=== PATIENT | female | born 1930 | race Caucasian/White ===

== ENCOUNTER 2017-07-09 02:28 | Inpatient (IN) | payer MEDICARE, OTHER ==
[2017-07-09 02:38] VITALS: RESP 16
[2017-07-09] MEDS ORDERED: SODIUM CHLORIDE 0.9% 1,000 ML IV STA (02:57)
[2017-07-09] MEDS ORDERED: SODIUM CHLORIDE 0.9% 500 ML IV STA (02:57)
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
[2017-07-09 03:21] LABS: Basophils % (A) 0 %; Eosinophils # (A) 0.1 k/uL (0-0.7); Eosinophils % (A) 2 %; HCT 39.2 % (34.0-46.0); HGB 13.1 gm/dL (11.4-16.0); Lymphocytes # (A) 1.2 k/uL (1.0-4.8); Lymphocytes % (A) 23 %; MCHC 33.4 g/dL (31.0-37.0); MCV 86.8 fL (80.0-100.0); Mean Platelet Volume 7.4; Monocytes # (A) 0.4 k/uL (0-1.0); Monocytes % (A) 8 %; Neutrophils # (A) 3.4 k/uL (1.3-7.7); Neutrophils % (A) 66 %; Platelet Count 267 k/uL (150-450); RBC 4.52 m/uL (3.80-5.40); RDW 13.8 % (11.5-15.5); WBC 5.2 k/uL (3.8-10.6)
[2017-07-09 03:34] LABS: Albumin 3.7 g/dL (3.5-5.0); Calcium 9.3 mg/dL (8.4-10.2); Potassium 4.2 mmol/L (3.5-5.1); Total Bilirubin 0.6 mg/dL (0.2-1.3); Total Protein 5.8 g/dL (6.3-8.2)
[2017-07-09 03:37] LABS: Creatine Kinase 43 U/L (30-135)
[2017-07-09 03:40] LABS: Glucose,Whole Blood 91 mg/dL (75-99)
[2017-07-09 03:50] LABS: Creatine Kinase MB 0.9 ng/mL (0.0-2.4); Troponin I <0.012 ng/mL (0.000-0.034)
--- NOTE | 2017-07-09 04:13 | XR ---
EXAM: XR Chest, 2 Views CLINICAL HISTORY: Cough TECHNIQUE: Frontal and lateral views of the chest. COMPARISON: No relevant prior studies available. FINDINGS: Chronic interstitial changes with mild hyperinflation the lungs. Cardiac silhouette is within normal limits. There is no evidence for effusions. There is no evidence for infiltrates. IMPRESSION: Unremarkable 2 views of the chest
--- NOTE | 2017-07-09 04:18 | CT ---
EXAM: CT Head Without Intravenous Contrast CLINICAL HISTORY: Pain TECHNIQUE: Axial computed tomography images of the head/brain without intravenous contrast. CTDI is 57.4 mGy and DLP is 961 mGy-cm. This CT exam was performed using one or more of the following dose reduction techniques: automated exposure control, adjustment of the mA and/or kV according to patient size, and/or use of iterative reconstruction technique. FINDINGS: No intracranial hemorrhage, abnormal intra- or extra-axial collections or parenchymal lesions are seen. There are involutional changes with prominence of the sulci, basal cisterns and ventricles. Scattered white matter hypoattenuations are present, likely from small vessel disease. The harris-white differentiation is preserved. No evidence of mass effect, midline shift, or edema. The osseous structures are unremarkable. Abnormal density noted in the right frontal sinus which could represent inflammatory change. Mucous retention cyst noted in the left maxillary sinus. IMPRESSION: 1. No acute intracranial process. 2. Involutional changes with small vessel disease.
[2017-07-09 04:30] LABS: Appearance,Urine Clear (Clear); Bacteria,Urine Many /hpf; Bilirubin,Urine Negative (Negative); Blood,Urine Negative (Negative); Color,Urine Yellow; Glucose,Urine (UA) Negative (Negative); Hyaline Casts,Urine 4 /lpf (0-2); Ketones,Urine Negative (Negative); Leukocyte Esterase,Urine Moderate (Negative); Mucus,Urine Rare /hpf; Nitrite,Urine Positive (Negative); Protein,Urine Negative (Negative); Specific Gravity,Urine 1.011 (1.001-1.035); Squamous Epithelial Cell,Urine <1 /hpf (0-4); Urobilinogen,Urine <2.0 mg/dL (<2.0); WBC,Urine 10 /hpf (0-5)
[2017-07-09] MEDS ORDERED: cefTRIAXone IN SWFI 1,000 MG/10 ML SYRINGE IVP STA (04:53)
[2017-07-09] MEDS ORDERED: ACETAMINOPHEN TAB 325 MG TAB PO PRN (05:15)
[2017-07-09] MEDS ORDERED: NALOXONE 0.4 MG/ML 1 ML VIAL IV PRN (05:15)
[2017-07-09 07:18] VITALS: BMI 18.3
[2017-07-09] MEDS: cefTRIAXone IN SWFI 1,000 MG/10 ML SYRINGE IVP SCH (07:40)
--- NOTE | 2017-07-09 14:36 | P.HPIM ---
History of Present Illness H&P Date: 07/09/17 Chief Complaint: Confusion and altered mental status This is a 87-year-old female patient of [facility]. She has no significant past medical history. She came into the emergency room due to altered mental status and possible psychosis. She was up on the fifth floor visiting with her who is admitted into the hospital and patient started acting irrationally with altered mental status and screaming out loud and being combative with the nurses. About 5 nurses had to help control the patient's and brought her down to the emergency room. Patient was found to have a urinary tract infection she was started on IV Rocephin and also given some IV fluids for dehydration a possible acute kidney injury. Daughter is concerned that patient may have some underlying dementia that was never officially diagnosed. Computed tomography scan of brain shows no acute intracranial process. Did show involutional changes with small vessel disease. Chest x- rays negative. EKG showing sinus rhythm with PACs. Patient is currently admitted to the third floor she is still very confused and psychiatry will be consulted. Review of Systems Unable to obtain due to patient's confusion Past Medical History Past Medical History: No Reported History History of Any Multi-Drug Resistant Organisms: None Reported Past Surgical History: No Surgical Hx Reported Past Psychological History: No Psychological Hx Reported Smoking Status: Former smoker Past Alcohol Use History: None Reported Past Drug Use History: None Reported - Past Family History Mother Family Medical History: No Reported History Medications and Allergies Home Medications Medication Instructions Recorded Confirmed Type No Known Home Medications [No 07/09/17 07/09/17 History Known Home Medications] Allergies Allergy/AdvReac Type Severity Reaction Status Date / Time No Known Allergies Allergy Verified 07/09/17 07:37 Physical Exam Vitals: Vital Signs Temp Pulse Pulse Resp BP BP Pulse Ox 07/09/17 07:21 97.4 F L 72 16 159/72 99 07/09/17 06:10 97.7 F 71 16 164/70 97 07/09/17 05:33 97.3 F L 75 16 161/75 96 07/09/17 04:06 98.8 F 74 16 170/83 98 07/09/17 02:31 98.2 F 110 H 16 174/93 97 Intake and Output 07/08/17 07/09/17 07/09/17 22:59 06:59 14:59 Other: Voiding Method Toilet # Voids 1 Weight 53.206 kg 53.206 kg Head normocephalic Neck supple Lungs clear to auscultation bilaterally no wheezing or crackles Heart regular rate and rhythm S1-S2, no rub or gallop Abdomen is soft nontender nondistended positive bowel sounds no hepatosplenomegaly Extremities no edema Neuro she is awake and alert however she is very confused. And repeating questions. Hyperverbal Results CBC & Chem 7: 07/09/17 03:00 07/09/17 03:00 Labs: Abnormal Lab Results - Last 24 Hours (Table) 07/09/17 07/09/17 Range/Units 03:00 04:14 Chloride 108 H (98-107) mmol/L BUN 37 H (7-17) mg/dL Creatinine 1.80 H (0.52-1.04) mg/dL Total Protein 5.8 L (6.3-8.2) g/dL Urine Nitrite Positive H (Negative) Ur Leukocyte Esterase Moderate H (Negative) Urine WBC 10 H (0-5) /hpf Urine Bacteria Many H (None) /hpf Hyaline Casts 4 H (0-2) /lpf Urine Mucus Rare H (None) /hpf Microbiology - Last 24 Hours (Table) 07/09/17 04:14 Urine Culture - Preliminary Urine,Clean Catch Thrombosis Risk Factor Assmnt - Choose All That Apply Each Risk Factor Represents 3 Points: Age 75 years or older Thrombosis Risk Factor Assessment Total Risk Factor Score: 3 Thrombosis Risk Factor Assessment Level: Moderate Risk Assessment and Plan Assessment: 1. Altered mental status with possible psychosis and a metabolic encephalopathy secondary to UTI. Computed tomography scan of the brain shows no acute changes 2. Psychosis with possible underlying dementia: Psychiatry will be consulted 3. Acute metabolic encephalopathy secondary to UTI and dehydration 4. UTI: Check urine culture. Patient started on IV Rocephin 5. Possible Acute kidney injury: Creatinine unknown. Creatinine on admission 1.8. Patient started on IV fluids. Repeat labs in a.m. GI prophylaxis Pepcid and DVT prophylaxis subcu heparin Time with Patient: Greater than 30 (Greater than 50% of the total time spent in counseling and coordination of care.I performed an examination of the patient and discussed their management with the physician Wash Driller. I have reviewed the Physician Wash Driller's notes and agree with the documented findings and plan of care)
[2017-07-09] MEDS: FAMOTIDINE 20 MG TAB PO SCH (15:46)
[2017-07-09 19:52] VITALS: TEMP 98
[2017-07-09] MEDS: HEPARIN SODIUM,PORCINE 5,000 UNIT/ML 1 ML VIAL SQ SCH (21:01)
[2017-07-10] MEDS: cefTRIAXone IN SWFI 1,000 MG/10 ML SYRINGE IVP SCH (07:16)
[2017-07-10 07:19] LABS: Basophils % (A) 0 %; Eosinophils # (A) 0.1 k/uL (0-0.7); Eosinophils % (A) 2 %; HCT 35.9 % (34.0-46.0); HGB 12.2 gm/dL (11.4-16.0); Lymphocytes # (A) 0.9 k/uL (1.0-4.8); Lymphocytes % (A) 18 %; MCH 28.8 pg (25.0-35.0); MCV 84.7 fL (80.0-100.0); Mean Platelet Volume 7.8; Monocytes # (A) 0.4 k/uL (0-1.0); Monocytes % (A) 7 %; Neutrophils # (A) 3.4 k/uL (1.3-7.7); Neutrophils % (A) 71 %; Platelet Count 232 k/uL (150-450); RBC 4.24 m/uL (3.80-5.40); RDW 13.4 % (11.5-15.5); WBC 4.8 k/uL (3.8-10.6)
[2017-07-10 07:55] VITALS: BP 155/77; PULSE 67
[2017-07-10] MEDS: FAMOTIDINE 20 MG TAB PO SCH (08:40)
[2017-07-10] MEDS: HEPARIN SODIUM,PORCINE 5,000 UNIT/ML 1 ML VIAL SQ SCH (08:41)
[2017-07-10 08:50] LABS: Calcium 8.8 mg/dL (8.4-10.2); Potassium 4.2 mmol/L (3.5-5.1); Total Bilirubin 0.6 mg/dL (0.2-1.3)
--- NOTE | 2017-07-10 12:09 | P.CN ---
Psychiatric Consult - . Consult date: 07/10/17 Consult:: 07/10/17 11:55 Patient was seen for a psych consult regarding her recent confused, agitated and hostile behavior. She does not have any history of psychiatric or treatment for any major physical problems. Her chemistry shows hypoproteinemia , renal insufficiency and UTI. Computed tomography scan of the brain shows scattered small vessel disease and possibly right frontal sinus inflammation. This is a thin ambulatory white female with good hygiene. She is very pleasant friendly cheerful and cooperative. But according to her daughter patient can become quite angry and hostile and threatening at times. She does not show psychomotor agitation or retardation. Her speech is spontaneous and goal- directed. But she is not able to provide good history. No evidence of current hallucinations and or delusional thinking. No evidence of suicide or homicide thoughts. She has multiple cognitive deficits. She is not able to name this [facility] or this city. She is not able to tell me the date. She said it is somewhere in the and this is fall season. She is not able to name even the current president. She is not able to recall even one out of 3 items after 5 minutes. She believes she is doing very well and does not have any problems and denies what happened to require this psychiatric consult. 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 Suggestion: Continue treatment for UTI. I strongly recommend that patient not be from her . Zyprexa 1.25 mg by mouth 3 times a day when necessary for agitated/psychotic behavior can be tried as a last resort if re-direction, environmental changes do not help.
--- NOTE | 2017-07-10 13:49 | P.DS ---
Providers Date of admission: 07/09/17 05:15 Expected date of discharge: 07/10/17 Attending physician: Jordan Parrish Consults: 07/09/17 14:27 Consult Physician Routine Consulting Provider: Libertad Nails Consult Reason/Comments: Pychosis, possible dementia Do you want consulting provider notified?: Yes Primary care physician: Megan Valenzuela [facility] Course: Discharge diagnosis 1. Altered mental status with possible psychosis and a metabolic encephalopathy secondary to UTI. Computed tomography scan of the brain shows no acute changes 2. Psychosis with possible underlying dementia: Psychiatry will be consulted 3. Acute metabolic encephalopathy secondary to UTI and dehydration 4. UTI: Urine culture pending. We'll discharge patient home with Ceftin 500 mg twice a day for 6 more days 5. Possible Acute kidney injury: Baseline Creatinine unknown. Creatinine on admission 1.8. Creatinine is down to 1.35 after IV fluids. Recommend checking a BMP in 1 week Hospital course This is a 87-year-old female patient of [facility]. She has no significant past medical history. She came into the emergency room due to altered mental status and possible psychosis. She was up on the fifth floor visiting with her who is admitted into the hospital and patient started acting irrationally with altered mental status and screaming out loud and being combative with the nurses. About 5 nurses had to help control the patient's and brought her down to the emergency room. Patient was found to have a urinary tract infection she was started on IV Rocephin and also given some IV fluids for dehydration a possible acute kidney injury. Daughter is concerned that patient may have some underlying dementia that was never officially diagnosed. Computed tomography scan of brain shows no acute intracranial process. Did show involutional changes with small vessel disease. Chest x- rays negative. EKG showing sinus rhythm with PACs. Patient is currently admitted to the third floor she is still very confused and psychiatry will be consulted. Patient is still having some confusion. She was evaluated by psychiatry. The recommending Zyprexa as needed if agitation does not improve with change in environment or redirection. Patient may have some underlying dementia. Symptoms also could be related to her UTI. Patient will complete treatment with Ceftin. Recommend following up with her PCP for urine culture results. Acute kidney injury also present on admission improving with IV fluids. Would recommend a BMP to be checked in 1 week. Patient is medical stable for discharge. Anticipate that her confusion will improve as her urinary tract infection is treated and she returns to her home environment. I performed an examination of the patient and discussed their management with the physician Machine Cutter. I have reviewed the Physician Machine Cutter's notes and agree with the documented findings and plan of care Patient Condition at Discharge: Stable Plan - Discharge Summary Discharge Rx Participant: Yes New Discharge Prescriptions: New Cefuroxime Axetil [Ceftin] 500 mg PO BID #12 tab OLANZapine [ZyPREXA] 1.25 mg PO TID PRN #30 tablet PRN Reason: Agitation Or Acute Psychosis Discharge Medication List Cefuroxime Axetil [Ceftin] 500 mg PO BID #12 tab 07/10/17 [Rx] OLANZapine [ZyPREXA] 1.25 mg PO TID PRN #30 tablet 07/10/17 [Rx] Follow up Appointment(s)/Referral(s): Megan Valenzuela DO [Primary Care Provider] - 1 Week Activity/Diet/Wound Care/Special Instructions: Diet: regular Activity: as tolerated Discharge Disposition: HOME WITH HOME HEALTH SERVICES
== END 2017-07-10 15:30 | disposition home health service (06) | DRG 689 ==
LOC: EC 02:28 → 3SUR 05:15
PROVIDERS: ADMIT Internal Medicine; ATTEND Internal Medicine
DX: N39.0 Urinary tract infection, site not specified (principal); G93.41 Metabolic encephalopathy; N17.9 Acute kidney failure, unspecified; F01.51 Vascular dementia, unspecified severity, with behavioral disturbance; E86.0 Dehydration; Z87.891 Personal history of nicotine dependence
CPT/HCPCS: 36415; 70450; 71046; 80053; 81001; 82140; 82150; 82550; 82553; 83690; 83735; 84443; 84484; 85025; 87077; 87086; 87186; 93005; 96361; 96374; 99285